=== PATIENT | male | born 1995 | race American Indian/Alaskan Native ===

== ENCOUNTER 2017-02-15 23:08 | Emergency (ER) | payer BC ==
[2017-02-16 04:06] LABS: Bilirubin,Urine NEG (Negative); Blood,Urine NEG (Negative); Ketones,Urine NEG (Negative); Leukocyte Esterase,Urine TR (Negative); Mucus,Urine 1+ /HPF; Nitrite,Urine NEG (Negative); Protein,Urine <15 mg/dL mg/dL (Negative)
--- NOTE | 2017-02-16 04:52 | Emergency Department Report ---
ED Female HPI - General Chief complaint: Urogenital-Female Stated complaint: SORE THROAT AND DISCHARGE Time Seen by Provider: 02/16/17 05:12 Source: patient Mode of arrival: Ambulatory Limitations: No Limitations - Related Data Allergies Allergy/AdvReac Type Severity Reaction Status Date / Time seafood Allergy Mild Anaphylaxis Uncoded 02/15/17 23:20 ED Review of Systems ROS: Stated complaint: SORE THROAT AND DISCHARGE Other details as noted in HPI ED Past Medical Hx - Past Medical History Previous Medical History?: No - Surgical History Past Surgical History?: No - Social History Smoking Status: Never Smoker Substance Use Type: Alcohol ED Physical Exam - General Limitations: No Limitations ED Course Vital Signs 02/15/17 02/15/17 23:10 23:13 Temperature 98.3 F 98.3 F Pulse Rate 94 H 94 H Respiratory 18 17 Rate Blood Pressure 123/73 123/73 O2 Sat by Pulse 99 99 Oximetry Critical care attestation.: If time is entered above; I have spent that time in minutes in the direct care of this critically ill patient, excluding procedure time. ED Disposition Condition: Stable Referrals: PRIMARY MD ALTA [Primary Care Provider] - 3-5 Days
[2017-02-16] MEDS ORDERED: XYLOCAINE 1% MPF 5 mL INFILTRATI ONE (05:12)
[2017-02-16] MEDS ORDERED: ZITHROMAX PO ONE (05:12)
[2017-02-16] MEDS ORDERED: ROCEPHIN IM STA (05:12)
[2017-02-16] MEDS ORDERED: FLAGYL PO ONE (05:12)
--- NOTE | 2017-02-16 06:20 | Emergency Department Report ---
ED Male HPI - General Chief complaint: Urogenital-Male Stated complaint: SORE THROAT AND DISCHARGE Time Seen by Provider: 02/16/17 04:46 Source: patient Mode of arrival: Ambulatory Limitations: No Limitations - History of Present Illness Initial comments: Patient and to ED with complaint of right-sided throat pain and bilateral ear pain. He said his pain is 10 out of 10. He is reporting nasal congestion and runny nose. Patient is also complaining of penile discharge patient said that it [place] when he urinates. He states that symptoms started 2 days ago. Patient said he had unsafe sex. He did not ask partner if they have symptoms. Denies any testicular pain. Denies any abdominal or back pain. Denies any nausea or vomiting. Denies any fever or chills. No [id number] medication taken for pain. Denies any drooling in, cough, shortness of breath or chest pain. Pain is worse with swallowing and feels sore. MD Complaint: penile discharge, dysuria Onset/Timin -: days(s) (sore throat and earache) Radiation: none Severity: severe Severity scale (0 -10): 10 Quality: aching, other (SORE) Consistency: intermittent Worsens with: urination, sexual intercourse new sexual partner discharge, dysuria, other (sore throat and earache with nasal congestion and runny nose). denies: swelling, mass, rash, urinary retention, blood in urine, fever, nausea/vomiting, incontinence - Related Data Sexually active: Yes Previous Rx's Medication Instructions Recorded Last Taken Type Sulfamethoxazole/Trimethoprim 1 each PO BID 7 Days #14 tablet 02/16/17 Unknown Rx [Bactrim DS TAB] Allergies Allergy/AdvReac Type Severity Reaction Status Date / Time seafood Allergy Mild Anaphylaxis Uncoded 02/15/17 23:20 ED Review of Systems ROS: Stated complaint: SORE THROAT AND DISCHARGE Other details as noted in HPI Comment: All other systems reviewed and negative Constitutional: no symptoms reported Eyes: denies: eye pain, eye discharge ENT: ear pain, throat pain, congestion (nasal congestion and runny nose.). denies: dental pain Respiratory: no symptoms reported Cardiovascular: denies: chest pain, palpitations, edema, syncope Gastrointestinal: denies: nausea, vomiting, diarrhea, constipation Genitourinary: dysuria, discharge. denies: frequency, hematuria, testicular pain, testicular mass Musculoskeletal: denies: back pain, joint swelling, arthralgia, myalgia Skin: denies: rash Neurological: denies: headache, weakness, numbness, paresthesias, confusion, abnormal gait, vertigo ED Past Medical Hx - Past Medical History Previous Medical History?: No - Surgical History Past Surgical History?: No - Family History Family history: no significant - Social History Smoking Status: Never Smoker Substance Use Type: Alcohol - Medications Home Medications: Home Medications Medication Instructions Recorded Confirmed Last Taken Type Sulfamethoxazole/Trimethoprim 1 each PO BID 7 Days #14 tablet 02/16/17 Unknown Rx [Bactrim DS TAB] ED Physical Exam - General Limitations: No Limitations General appearance: alert, in no apparent distress - Head Head exam: Present: atraumatic, normocephalic - Eye Eye exam: Present: normal appearance, PERRL, EOMI. Absent: conjunctival injection Pupils: Present: normal accommodation - ENT ENT exam: Present: normal exam, normal orophraynx, mucous membranes moist, normal external ear exam, other (bilateral maxillary and frontal sinus nontender to palpate. No pharyngeal erythema, uvula is midline and no peritonsillar abscess). Absent: TM's normal bilaterally (bilateral chin congested without erythema) - Neck Neck exam: Present: normal inspection, full ROM, other (no C-spine tenderness). Absent: tenderness, meningismus, lymphadenopathy, thyromegaly - Respiratory Respiratory exam: Present: normal lung sounds bilaterally. Absent: respiratory distress, wheezes, rales, rhonchi, stridor, chest wall tenderness, accessory muscle use, decreased breath sounds, prolonged expiratory - Cardiovascular Cardiovascular Exam: Present: regular rate, normal rhythm, normal heart sounds. Absent: systolic murmur, diastolic murmur - GI/Abdominal GI/Abdominal exam: Present: soft, normal bowel sounds. Absent: distended, tenderness, guarding, rebound, rigid, organomegaly, mass, bruit, pulsatile mass , hernia - Extremities Exam Extremities exam: Present: normal inspection, full ROM, normal capillary refill , other (clubbing, cyanosis or edema. +2 pulses in all extremities.). Absent: tenderness, pedal edema, joint swelling, calf tenderness - Back Exam Back exam: Present: normal inspection, full ROM. Absent: tenderness, CVA tenderness (R), CVA tenderness (L), muscle spasm, paraspinal tenderness, vertebral tenderness, rash noted - Neurological Exam Neurological exam: Present: alert, oriented X3, normal gait - Psychiatric Psychiatric exam: Present: normal affect, normal mood - Skin Skin exam: Present: warm, dry, intact, normal color. Absent: rash ED Course Vital Signs 02/15/17 02/15/17 23:10 23:13 Temperature 98.3 F 98.3 F Pulse Rate 94 H 94 H Respiratory 18 17 Rate Blood Pressure 123/73 123/73 O2 Sat by Pulse 99 99 Oximetry - Reevaluation(s) Reevaluation #1: 02/16/17 06:23 Patient here reporting that he has penile discharge and urinary burning and he has a new sexual partner and he does not know if partner with STD because he had unprotected sex. Patient is requesting to be treated for all STD to include diarrhea, chlamydia and Trichomonas. Patient also urinalysis shows that he has urinary tract infection and gonorrhea and Chlamydia sent and pending. Patient was given azithromycin 1 g by mouth, Flagyl 2 g by mouth and Rocephin 1 g IM which will cover gonorrhea and urinary tract infection. He had no adverse reaction from medication. ED Medical Decision Making - Lab Data Lab Results 02/16/17 Range/Units 03:41 Urine Color Yellow (Yellow) Urine Turbidity Clear (Clear) Urine pH 5.0 (5.0-7.0) Ur Specific [place] 1.033 H (1.003-1.030) Urine Protein <15 mg/dl (Negative) mg/dL Urine Glucose (UA) Neg (Negative) mg/dL Urine Ketones Neg (Negative) mg/dL Urine Blood Neg (Negative) Urine Nitrite Neg (Negative) Urine Bilirubin Neg (Negative) Urine Urobilinogen 4.0 (<2.0) mg/dL Ur Leukocyte Esterase Tr (Negative) Urine WBC (Auto) 29.0 H (0.0-6.0) /HPF Urine RBC (Auto) 3.0 (0.0-6.0) /HPF U Epithel Cells (Auto) < 1.0 (0-13.0) /HPF Calcium Oxalate Crystal 1+ Urine Mucus 1+ /HPF Urine culture pending Gonorrhea and chlamydia pending - Medical Decision Making ED course: She is here with multiple complaints from head to toe. He said he is having sore throat, earache and nasal congestion with drainage. He is also requesting in STD test. He said he has penile drainage with urinary burning. Patient wants to be treated for STD. I discussed the patient that he needs to tell his partner that he was treated in emergency room for STD due to penile drainage. I discussed with hands that his urinalysis is positive for urine infection and cultures were sent and also gonorrhea and Chlamydia cultures were sent. Discussed patient that he will be treated for gonorrhea, Trichomonas and Chlamydia in the emergency room and he needs to refrain from drinking any alcohol for over the next week as all call and medication taken for Trichomonas can cause severe stomach upset. I also told him that he needs to refrain from having sex over the next 2 weeks and he needs to go to [facility] for follow-up STD testing. Patient also given information on free HIV testing at [facility] every Friday. Patient educated on STD and encouraged to practice safe sex and urinary tract infection. He voiced understanding and discharged home with prescription for Bactrim DS for UTI Critical care attestation.: If time is entered above; I have spent that time in minutes in the direct care of this critically ill patient, excluding procedure time. ED Disposition Clinical Impression: Acute cystitis without hematuria, Drainage from penis, Upper respiratory infection, acute, Nasal congestion with rhinorrhea, Otalgia of both ears, Concern about STD in male without diagnosis Pharyngitis Qualifiers: Pharyngitis/tonsillitis etiology: unspecified etiology Qualified Code(s): J02.9 - Acute pharyngitis, unspecified Disposition: TO HOME OR SELFCARE Is pt being admited?: No Does the pt Need Aspirin: No Condition: Stable Instructions: Dysuria (ED), Urinary Tract Infection in Men (ED), Safe Sex (ED) , Sexually Transmitted Diseases (ED), Upper Respiratory Infection (ED), Pharyngitis (ED), Earache (ED) Additional Instructions: Please practice safe sex You were treated by her [employer] for bacterial vaginosis and she said she took the pills for 7 days which will cover Trichomonas. You have a urinary tract infection and will be treated with Bactrim for 10 days Please do not have any sexual activity for the next 2 weeks. Your urine culture and gonorrhea and chlamydia culture is pending Follow-up with your primary care physician in 2 days Follow up with [facility] in 7-10 days for repeat STD check You were treated today gonorrhea and chlamydia tests will be back in 5-7 days. You were treated today in emergency room for gonorrhea, chlamydia and Trichomonias. These do not drink alcohol for the next 7 days as this will interact negatively with medication given for STD. Tell partner know that you're treated for STD and hospital today. increase her fluid intake Take medication as prescribed. Prescriptions: Sulfamethoxazole/Trimethoprim [Bactrim DS TAB] 1 each PO BID 7 Days #14 tablet Referrals: PRIMARY CAREMD [Primary Care Provider] - 2-[address] [facility] [Outside] - 7-10 days Forms: Work/School Release Form(ED)
[2017-02-16 06:50] VITALS: BP 121/69
== END 2017-02-16 06:50 | disposition home or self-care (01) ==
LOC: ED 23:08
DX: N30.00 Acute cystitis without hematuria (principal); J06.9 Acute upper respiratory infection, unspecified; R36.9 Urethral discharge, unspecified; H92.03 Otalgia, bilateral; Z91.013 Allergy to seafood
CPT/HCPCS: 81001; 87086; 87591; 96372; 99283; J0696